=== PATIENT | female | born 1990 ===

== ENCOUNTER 2024-07-06 14:05 | Inpatient (IN) | payer MEDICAID, OTHER, SELFPAY ==
[2024-07-06] MEDS ORDERED: hydrALAZINE 20 MG/ML VIAL SLOW IVP PRN (15:01)
[2024-07-06 15:06] LABS: Fetal Membranes Rupture RUPTURE DETECTED (No Rupture)
[2024-07-06] MEDS ORDERED: Diphenoxylate HCl/Atropine Tablet PO PRN ×2 (15:09)
[2024-07-06] MEDS ORDERED: Carboprost 250 MCG/ML AMP IM PRN (15:09)
[2024-07-06] MEDS ORDERED: Misoprostol 200 MCG TAB PR PRN (15:09)
[2024-07-06] MEDS ORDERED: Methylergonovine 0.2 MG/ML VIAL IM PRN (15:09)
[2024-07-06] MEDS ORDERED: Promethazine HCl 25 MG/ML VIAL IM PRN (15:09)
[2024-07-06] MEDS ORDERED: Ondansetron PF 4 MG/2 ML Vial IVP PRN (15:09)
[2024-07-06] MEDS ORDERED: Tranexamic Acid 1,000 MG/10 ML VIAL IVP PRN (15:09)
[2024-07-06] MEDS ORDERED: Oxytocin 30 units/NS 500 ML 500 ML IV SCH (15:15)
[2024-07-06 16:12] LABS: Hematocrit 34.6 % (34.9-44.5); Hemoglobin 11.4 g/dL (12.0-15.5); Mean Corpuscular HGB CONC 32.9 g/dL (32.0-36.0); Mean Corpuscular Hemoglobin 26.1 pg (27.0-33.0); Mean Corpuscular Volume 79.4 fL (81.6-98.3); Mean Platelet Volume 10.8 fL (7.4-10.4); Platelet Count 338 10x3/uL (150-450); RBC Distribution Width 14.6 % (11.5-14.5); Red Blood Cell (RBC) Count 4.36 10x6/uL (3.90-5.03); White Blood Cell (WBC) Count 9.85 10x3/uL (3.5-10.5)
[2024-07-06] MEDS: Penicillin G Potassium 5 MILL.UNITS in Sodium Chloride 0.9% 100 ML IVPB SCH (16:31)
[2024-07-06] MEDS: Lactated Ringer's 1,000 ML IV SCH (16:37)
[2024-07-06] MEDS: Oxytocin 30 units/NS 500 ML 500 ML IV SCH (17:15)
[2024-07-06 17:18] LABS: Syphilis Antibody Nonreactive (Nonreactive); Syphilis Antibody Index 0.06 S/CO (<1.00 Non-Reactive)
[2024-07-06 17:24] LABS: HBsAg Index 0.15 S/CO (0-0.99); HIV (1/2) Antibody/Antigen Non-Reactive (NonReactive); Hep B Surf Ag - L&D Non-Reactive S/CO (NonReactive)
[2024-07-06 18:14] LABS: Amphetamine Not Detected (NotDetected); Barbiturates Screen Not Detected (NotDetected); Benzodiazepine Screen Not Detected (NotDetected); Cocaine Metabolite Screen Not Detected (NotDetected); Methadone Not Detected (NotDetected); Methamphetamine Not Detected (NotDetected); Opiate Screen Not Detected (NotDetected); Oxycodone Screen Not Detected (NotDetected); Phencyclidine (PCP) Not Detected (NotDetected); THC/Cannabinoid Screen Not Detected (NotDetected); Tricyclic Screen Not Detected (NotDetected)
[2024-07-06 19:07] VITALS: BMI 37.3
[2024-07-06] MEDS: Penicillin G 2.5 MILL.units 2.5 MILL.UNITS in Premix 1 BAG IVPB SCH (20:13)
[2024-07-07] MEDS: Ibuprofen 800 MG TAB PO PRN (02:09)
[2024-07-07] MEDS ORDERED: Bisacodyl 10 MG SUPP PR PRN (02:35)
[2024-07-07] MEDS ORDERED: hydrALAZINE 20 MG/ML VIAL SLOW IVP PRN (02:35)
[2024-07-07] MEDS ORDERED: Preparation H Ointment 28 GM TUBE PR PRN (02:35)
[2024-07-07] MEDS ORDERED: Milk Of Magnesia 30 ML UDCUP PO PRN (02:35)
[2024-07-07] MEDS ORDERED: Benzocaine-Menthol 82.5 ML CAN TOP PRN (02:35)
[2024-07-07] MEDS ORDERED: Lanolin Ointment 7 GM TUBE TOP PRN (02:35)
[2024-07-07] MEDS ORDERED: diphenhydrAMINE 25 MG CAP PO PRN (02:35)
[2024-07-07] MEDS: Docusate 100 MG CAP PO SCH (08:18)
[2024-07-07] MEDS: Prenatal Vitamin 1 TAB PO SCH (08:18)
[2024-07-07] MEDS: Ferrous Sulfate 325 MG TAB PO SCH (08:20)
[2024-07-07] MEDS: Ibuprofen 800 MG TAB PO SCH (09:23)
[2024-07-08] MEDS: Boostrix 0.5 ML (Tdap) VIAL (>/=7 yrs of age) IM ONE (07:07)
[2024-07-08 07:17] VITALS: BP 97/60; TEMP 97.7
== END 2024-07-08 13:00 | disposition home or self-care (01) | DRG 807 ==
LOC: CSHLD/OP 14:05 → CSHLD 17:43 → CSHPP 07-07 01:40
PROVIDERS: ADMIT Obstetrics & Gynecology; ATTEND Obstetrics & Gynecology
PROC: 10E0XZZ Delivery of Products of Conception, External Approach (ICD-10-PCS; principal; 2024-07-06)
PROC: 10H07YZ Insertion of Other Device into Products of Conception, Via Natural or Artificial Opening (ICD-10-PCS; 2024-07-06)
DX: O42.013 Preterm premature rupture of membranes, onset of labor within 24 hours of rupture, third trimester (principal); Z37.0 Single live birth; Z3A.35 35 weeks gestation of pregnancy; Z79.899 Other long term (current) drug therapy
CPT/HCPCS: 36415; 76815; 80306; 84112; 85027; 86780; 86850; 86900; 86901; 87340; 87389; 99285; J2540; J2590